=== PATIENT | female | born 1975 | race Two or more races ===

== ENCOUNTER → 2022-07-11 | Day surgery (SDC) | payer OTHER | END | disposition home or self-care (01) | LOC: ADM 07-06 13:00 → AMB-ENDOS 08:02 → CIR.AMB 13:00 | PROVIDERS: ATTEND Colon & Rectal Surgery | DX: K62.0 Anal polyp (principal); K64.8 Other hemorrhoids; R19.4 Change in bowel habit; K57.30 Diverticulosis of large intestine without perforation or abscess without bleeding; Z20.822 Contact with and (suspected) exposure to COVID-19 ==